=== PATIENT | female | born 1990 | race Two or more races ===

== ENCOUNTER 2016-07-01 21:44 | Emergency (ER) | payer SELFPAY ==
[~2016-07-01] VITALS: Ht 154.9 cm; Wt 68.0 kg
[~2016-07-01 21:44] MED LIST: NORCO 5-325 TA1 EACH ORAL; VIBRAMYCIN100 MG ORAL
[2016-07-01] MEDS ORDERED: Ketorolac 30mg Inj IV ONE (22:30)
--- NOTE | 2016-07-01 22:49 | Emergency Room Report ---
History of Present Illness General Chief Complaint: Chest Pain Source: Patient Present Illness HPI Is a 26-year-old female with no past medical history. She presents with chief complaint of chest pain. Localized the left chest. Sharp in nature. Onset about an hour ago. Has been ongoing for last several months. Her primary care said that is probably bronchitis. She was given antibiotics. She went to another hospital last month and had x-ray done. She was told that they may be a nodule and again placed on antibiotics. Not getting better. Sometimes pain is sharper to the point that she is hard time swallowing. Described the pain lasting for a few minutes. Symptom radiating to her left arm. No numbness to both hands. No other complaint. No shortness of breath. No diaphoresis. No exertional component. She is taking control. Allergies: Coded Allergies: LATEX (Unverified Allergy, Unknown, 09/30/14) PENICILLIN G (Unverified Allergy, Unknown, 09/30/14) Patient History Past Medical History: none, see triage record, old chart reviewed Past Surgical History: none Pertinent Family History: none Social History: Denies: smoking Immunizations: other Reviewed Nursing Documentation: PMH: Agreed, PSxH: Agreed Nursing Documentation-PMH Past Medical History: No Stated History Review of Systems Eye: Denies: blurred vision, eye pain ENT: Denies: ear pain, nose congestion, throat swelling Respiratory: Denies: cough, shortness of breath Cardiovascular: Reports: chest pain, Denies: palpitations Gastrointestinal: Denies: abdominal pain, diarrhea, nausea, vomiting Musculoskeletal: Denies: back pain, joint pain Skin: Denies: rash Neurological: Denies: headache, numbness Endocrine: Denies: increased thirst, increased urine Hematologic/Lymphatic: Denies: easy bruising All Other Systems: negative except mentioned in HPI Physical Exam Vital Signs Date Time Temp Pulse Resp B/P Pulse Ox O2 Delivery O2 Flow Rate FiO2 07/01/16 22:03 98.2 73 20 115/67 99 Room Air vitals normal Sp02 EP Interpretation: reviewed, normal General Appearance: well appearing, no apparent distress, alert Head: normocephalic, atraumatic Eyes: bilateral eye EOMI, bilateral eye PERRL ENT: hearing grossly normal, normal pharynx Neck: full range of motion, supple, no meningismus Respiratory: chest non-tender, lungs clear, normal breath sounds Cardiovascular #1: regular rate, rhythm, no murmur Gastrointestinal: normal bowel sounds, non tender, no mass, no organomegaly, no bruit, non-distended Musculoskeletal: back normal, gait/station normal, normal range of motion Psychiatric: mood/affect normal Skin: warm/dry Medical Decision Making Diagnostic Impression: Primary Impression: Non-cardiac chest pain ER Course She is present with chest pain. Noncardiac in nature. Most likely heartburn. She is otherwise stable. No evidence of ACS, PE, dissection. D-dimer is negative. We'll discharge home. She may benefit from GI workup. Lab Results Impression labs normal EKG Diagnostic Results Rate: normal Rhythm: NSR ST Segments: no acute changes Rhythm Strip Diag. Results EP Interpretation: yes Rate: 70 Rhythm: NSR, no PVC's, no ectopy Last Vital Signs Date Time Temp Pulse Resp B/P Pulse Ox O2 Delivery O2 Flow Rate FiO2 07/01/16 22:03 98.2 73 20 115/67 99 Room Air Status: improved Disposition: HOME, SELF-CARE Condition: Stable Scripts Omeprazole Magnesium (PRILOSEC OTC) 20 Mg Tablet. 20 MG ORAL DAILY, #30 TAB Prov: REECE CORDOVA M.D. 07/02/16 Patient Instructions: Nonspecific Chest Pain, Heartburn Additional Instructions: Followup with your DrRadha in 3-5 days. You may be referred to see a GI DrRadha for endoscopy. Return if symptom worsen. REECE CORDOVA M.D. Jul 01, 2016 22:49
[2016-07-01 22:57] VITALS: BP 127/85
[2016-07-01 23:02] LABS: BASOPHILS % (AUTO) 0.8 % (0.0-2.0); EOSINOPHILS % (AUTO) 3.5 % (0.0-3.0); LYMPHOCYTES % (AUTO) 36.1 % (20.0-45.0); MEAN CORPUSCULAR HEMOGLOBIN 29.8 PG (27.0-31.0); MEAN CORPUSCULAR HGB CONC 34.3 G/DL (32.0-36.0); MEAN CORPUSCULAR VOLUME 87 FL (80-99); MEAN PLATELET VOLUME 9.2 FL (6.5-10.1); MONOCYTES % (AUTO) 8.3 % (1.0-10.0); NEUTROPHILS % (AUTO) 51.3 % (45.0-75.0); PLATELET COUNT 174 K/UL (150-450); RED BLOOD COUNT 4.44 M/UL (4.20-5.40); RED CELL DISTRIBUTION WIDTH 11.3 % (11.6-14.8); WHITE BLOOD COUNT 6.8 K/UL (4.8-10.8)
[2016-07-01 23:02] LABS: APPEARANCE,URINE CLEAR; KETONES,URINE NEGATIVE (NEGATIVE); LEUKOCYTE ESTERASE ,URINE 2+ (NEGATIVE); NITRITE,URINE NEGATIVE (NEGATIVE); PH,URINE 5 (4.5-8.0); PROTEIN,URINE NEGATIVE (NEGATIVE); UROBILINOGEN,URINE NORMAL MG/DL (0.0-1.0)
[2016-07-01 23:17] LABS: BACTERIA,URINE FEW /HPF; RBC,URINE 0-2 /HPF (0 - 2); SQUAMOUS EPITHELIAL CELL,UR FEW /LPF (NONE/OCC)
[2016-07-01 23:42] LABS: ANION GAP 16 (5-15); CALCIUM 8.6 mg/dL (8.6-10.2); CARBON DIOXIDE 21 mEQ/L (20-30); CHLORIDE 102 mEQ/L (98-107); CREATININE 0.5 mg/dL (0.5-0.9); GLOMERULAR FILTRATION RATE > 60 mL/min (>60); HEMOLYSIS 103; POTASSIUM 3.9 mEQ/L (3.4-4.9); SODIUM 139 mEQ/L (135-145)
[2016-07-01 23:46] VITALS: BP 108/80
[2016-07-02] MEDS ORDERED: PRILOSEC OTC20 MG ORAL
[2016-07-02 00:17] VITALS: BP 110/80
--- NOTE | 2016-07-03 15:57 | Cardiology Report ---
APPROVED REPORT EKG Measurement Heart [id number] Normal sinus rhythm with sinus arrhythmia Normal ECG
== END 2016-07-02 00:20 | disposition home or self-care (01) ==
LOC: EMR 22:25
DX: R07.89 Other chest pain (principal); Z88.0 Allergy status to penicillin; Z91.040 Latex allergy status
CPT/HCPCS: 36415; 80048; 81001; 81025; 85025; 85379; 93005; 96374; 99283; J1885

== ENCOUNTER 2017-05-24 10:20 | Emergency (ER) | payer SELFPAY ==
[~2017-05-24] VITALS: Ht 157.5 cm; Wt 66.2 kg
[~2017-05-24 10:20] MED LIST changes: +PRILOSEC OTC20 MG ORAL
[2017-05-24 10:57] LABS: APPEARANCE,URINE CLEAR; BILIRUBIN, URINE NEGATIVE (NEGATIVE); GLUCOSE, URINE (UA) NEGATIVE (NEGATIVE); KETONES,URINE NEGATIVE (NEGATIVE); LEUKOCYTE ESTERASE ,URINE 1+ (NEGATIVE); NITRITE,URINE NEGATIVE (NEGATIVE); PH,URINE 7 (4.5-8.0); PROTEIN,URINE NEGATIVE (NEGATIVE); UROBILINOGEN,URINE 1 MG/DL (0.0-1.0)
[2017-05-24 11:02] LABS: COLOR,URINE YELLOW
--- NOTE | 2017-05-24 11:08 | Emergency Room Report ---
History of Present Illness General Chief Complaint: Complications Source: Patient Present Illness HPI Patient present with complaints of vaginal bleeding Reports that she was seen by her OB physician on Friday and last Friday Serial hormone levels has shown increased levels Patient however over the last day started to have increased spotting She felt that it was possibly secondary to the Pap smear she had done at the OB physician However presents with continued vaginal bleeding Denies any chest pain or shortness of breath denies any vomiting she has a mild cramping intermittently in the lower abdomen Patient is Allergies: Coded Allergies: LATEX (Unverified Allergy, Unknown, 09/30/14) PENICILLIN G (Unverified Allergy, Unknown, 09/30/14) Patient History Past Medical History: see triage record Pertinent Family History: none Last Menstrual Period: 03/17/17 Now: Yes : 4 Para: 2 Reviewed Nursing Documentation: PMH: Agreed, PSxH: Agreed Nursing Documentation-PMH Past Medical History: No Stated History Review of Systems All Other Systems: negative except mentioned in HPI Physical Exam Vital Signs Date Time Temp Pulse Resp B/P (MAP) Pulse Ox O2 Delivery O2 Flow Rate FiO2 05/24/17 10:26 97.7 69 18 115/75 99 Room Air Sp02 EP Interpretation: reviewed, normal General Appearance: well appearing, no apparent distress Head: normocephalic, atraumatic Eyes: bilateral eye PERRL, bilateral eye EOMI ENT: hearing grossly normal, normal pharynx, TMs + canals normal, uvula midline Neck: full range of motion, supple, no meningismus, no bony tend Respiratory: lungs clear, normal breath sounds, no rhonchi, no respiratory distress, no retraction, no accessory muscle use Cardiovascular #1: normal peripheral pulses, regular rate, rhythm, no edema, no gallop, no JVD, no murmur Gastrointestinal: normal bowel sounds, non tender, soft, no mass, no organomegaly, non-distended, no guarding, no hernia, no pulsatile mass, no rebound Genitourinary: no CVA tenderness Musculoskeletal: normal inspection Neurologic: oriented x3, responsive, needle straightener III-XII nml as tested, motor strength/ tone normal, sensory intact Psychiatric: mood/affect normal Skin: normal color, no rash, warm/dry, palpation normal Lymphatic: normal inspection, no adenopathy Medical Decision Making Diagnostic Impression: Primary Impression: Threatened Additional Impression: UTI (urinary tract infection) ER Course With the patient's history and examination, multiple differentials considered, including but not limited to , ectopic , ovarian torsion, gastritis, cholecystitis, pancreatitis, appendicitis Patient's ultrasound reveals a gestational sac Beta Quant is at 5000 Patient's a urine does show evidence of white blood cells Patient will require repeat [facility] followup in the next 3 days at this time does not appear to have findings of ectopic given the ultrasound report and requires close followup Labs Test 05/24/17 10:40 Urine Color Yellow Urine Appearance Clear Urine pH 7 (4.5-8.0) Urine Specific [place] 1.010 (1.005-1.035) Urine Protein Negative (NEGATIVE) Urine Glucose (UA) Negative (NEGATIVE) Urine Ketones Negative (NEGATIVE) Urine Occult Blood 2+ (NEGATIVE) Urine Nitrite Negative (NEGATIVE) Urine Bilirubin Negative (NEGATIVE) Urine Urobilinogen 1 MG/DL (0.0-1.0) Urine Leukocyte Esterase 1+ (NEGATIVE) Urine RBC 2-4 /HPF (0 - 2) Urine WBC 5-10 /HPF (0 - 2) Urine Squamous Epithelial Cells Few /LPF (NONE/OCC) Urine Bacteria Few /HPF (NONE) Urine Mucus Few /LPF (NONE/OCC) Urine HCG, Qualitative Positive Human Chorionic Gonadotropin, Quant 5593 mIU/mL (1-6) CT/MRI/US Diagnostic Results CT/MRI/US Diagnostic Results : Impression Pelvic ultrasound OB: Refer to her report for full specific, evidence of gestational sac no other obvious acute pathology Last Vital Signs Date Time Temp Pulse Resp B/P (MAP) Pulse Ox O2 Delivery O2 Flow Rate FiO2 05/24/17 10:26 97.7 69 18 115/75 99 Room Air Status: improved Disposition: HOME, SELF-CARE Condition: Improved Scripts Nitrofurantoin Monohyd/M-Cryst* (MACROBID 100 MG*) 100 Mg Capsule 100 MG ORAL EVERY 12 HOURS for 5 Days, CAP Prov: JAUN ARCINIEGA D.O. 05/24/17 Additional Instructions: Patient is provided with the discharge instructions notified to follow up with primary doctor in the next 2-3 days otherwise return to the er with any worsening symptoms. Please note that this report is being documented using [employer] technology. This can lead to erroneous entry secondary to incorrect interpretation by the dictating instrument. JAUN ARCINIEGA D.O. May 24, 2017 11:08
[2017-05-24] MEDS ORDERED: NITROFURANTOIN100 M2 ORAL (12:35)
--- NOTE | 2017-05-24 12:40 | Diagnostic Imaging Report ---
Indication: Positive . Spotting. Beta-hCG 5593 Technique: Grayscale and duplex Doppler imaging of the pelvis performed utilizing a transabdominal scan and endovaginal scan. Comparison: None Findings: The uterus measures 9.4 x 4.2 x 6.5 cm. An anechoic well-circumscribed structure within the uterus measures 5.5 x 3.8 mm. May represent an early gestational sac. Size too small to approximate age by ultrasound. There may be some decidual reaction. The right ovary measures 2.9 x 2.4 x 2.2 cm/7.8 mL. The left ovary measures 2.6 x 1.9 x 2 cm/5.2 mL. Vascular flow to both ovaries noted. There is no free pelvic fluid. IMPRESSION: Anechoic structure within the uterus possibly representing a small intrauterine gestational sac. No pole seen at this time. Findings may be related to early . Anembryonic or other etiologies not entirely excluded. Correlation with trended beta-hCG and short-term interval follow-up ultrasound recommended until diagnosis made. No adnexal mass/lesion. No evidence to suggest ovarian torsion at this time.
[2017-05-24 12:59] VITALS: BP 117/74
== END 2017-05-24 13:02 | disposition home or self-care (01) ==
LOC: EMR 10:35
DX: O20.0 Threatened abortion (principal); Z3A.00 Weeks of gestation of pregnancy not specified
CPT/HCPCS: 36415; 76801; 76830; 81003; 81025; 84702; 86900; 86901; 99284